=== PATIENT | female | born 1990 | race Caucasian/White ===

== ENCOUNTER 2017-10-11 02:03 | Emergency (ER) | payer OTHER ==
[~2017-10-11] VITALS: Ht 256.5 cm; Wt 49.9 kg
[2017-10-11 02:09] VITALS: BP 100/43
--- NOTE | 2017-10-11 02:09 | NUR ---
PT TAKEN TO BED 10
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
--- NOTE | 2017-10-11 02:24 | NUR ---
CALLED [facility] [employer], ETA 30-60MINS
[2017-10-11] MEDS ORDERED: NACL 0.9% 1,000 ML IV ONE (02:25)
[2017-10-11] MEDS ORDERED: ONDANSETRON 4 MG/2 ML VIAL IVP ONE (02:25)
--- NOTE | 2017-10-11 02:55 | NUR ---
PT ASLEEP, VSS.
[2017-10-11 03:01] LABS: HEMATOCRIT 36.9 % (36-48); HEMOGLOBIN 12.1 g/dL (12.0-16.0); MEAN CORPUSCULAR HEMOGLOBIN 30 pg (27-31); MEAN CORPUSCULAR HGB CONC 33 g/dL (33-37); MEAN CORPUSCULAR VOLUME 92 fL (80-94); PLATELET COUNT (AUTO) 167 K/uL (140-450); RED CELL DISTRIBUTION WIDTH 11.7 % (11.6-13.7); WHITE BLOOD COUNT (AUTO) 5.4 K/uL (4.8-10.8)
[2017-10-11 03:05] LABS: APPEARANCE,URINE CLEAR (CLEAR); BILIRUBIN,URINE NEGATIVE (NEGATIVE); BLOOD, URINE 1+ (NEGATIVE); COLOR,URINE YELLOW (YELLOW); LEUKOCYTE ESTERASE ,URINE NEGATIVE (NEGATIVE); NITRITE, URINE NEGATIVE (NEGATIVE); UGLUCOSE NEGATIVE (NEGATIVE)
[2017-10-11 03:11] LABS: ANION GAP 12.8 (8-16); CARBON DIOXIDE 25.9 mmol/L (21-32); CHLORIDE 109 mmol/L (98-107); CREATININE 0.5 mg/dL (0.6-1.3); GFR ARICAN-AMERICAN 193 mL/min (>90); GLUCOSE 119 mg/dL (74-106); POTASSIUM 3.7 mmol/L (3.5-5.1); SODIUM SERUM 144 mmol/L (136-145); UREA NITROGEN, BLOOD 10 mg/dL (7-18)
[2017-10-11 03:14] LABS: BARBITURATE, URINE NEG. ng/ml (NEG <=200); BENZODIAZEPINE, URINE NEG. ng/mL (NEG <=200); CANNABINOID, URINE NEG. ng/mL (NEG <=50); COCAINE, URINE NEG. ng/mL (NEG <=300); OPIATE, URINE NEG. ng/mL (NEG <=2000); PHENCYCLIDINE SCREEN,URINE NEG. ng/mL (NEG <=25)
[2017-10-11 03:17] LABS: ALBUMIN 4.1 g/dL (3.4-5.0); ASPARTATE AMINOTRANSFERASE 15 U/L (15-37); EOSINOPHILS % (MANUAL) 1 % (0-4); LYMPHOCYTES % (MANUAL) 22 % (20-46); MONOCYTES % (MANUAL) 6 % (5-12); TOTAL BILIRUBIN 0.3 mg/dL (0.0-1.0)
[2017-10-11 03:20] LABS: ACETAMINOPHEN < 0.5 ug/ml (10-30); SALICYLATE < 2.8 mg/dL (2.8-20.0)
--- NOTE | 2017-10-11 03:20 | NUR ---
PT TAKEN TO CT
[2017-10-11 03:22] LABS: RBC,URINE 0-5 (RARE) /HPF (0-5); WBC,URINE 0-5 (RARE) /HPF (0-5)
--- NOTE | 2017-10-11 03:44 | NUR ---
PT RETURN FROM CT
--- NOTE | 2017-10-11 03:45 | NUR ---
OFFICER ERIC FROM [place] [employer] CALLED ETA 30 MINS
--- NOTE | 2017-10-11 03:53 | NUR ---
[facility] AT BEDSIDE
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
[2017-10-11] MEDS ORDERED: LIDOCAINE/EPI 2% 1:100000 20 ML VIAL INJ ONE (05:30)
[2017-10-11] MEDS ORDERED: LIDOCAINE/EPI 1% 1:100000 20 ML VIAL INJ ONE (05:33)
[2017-10-11] MEDS ORDERED: BACITRACIN OINT 500 UNITS/GM PKT TP ONE ×2 (05:50→05:53)
[2017-10-11 05:55] VITALS: BP 127/86
--- NOTE | 2017-10-11 05:55 | NUR ---
Patient presented to facility under the influence of Alcohol. Patient is currently ambulatory with steady gait, able to walk unassisted. Positive gag reflex. Alert and oriented. Is not driving self for discharge out of facility.Patient discharged with v/s stable. Written and verbal after care instructions given and explained. Patient verbalized understanding. Ambulatory with steady gait. All questions addressed prior to discharge. Advised to follow up with PMD.
--- NOTE | 2017-11-06 19:59 | NUR ---
10/11/17 NS 1L END-TIME: [id number]
== END 2017-10-11 05:55 | disposition home or self-care (01) ==
LOC: MED 02:03 → EDBD 02:03 → MED 05:55
DX: S01.81XA Laceration without foreign body of other part of head, initial encounter (principal); W22.8XXA Striking against or struck by other objects, initial encounter; Y93.89 Activity, other specified; Y92.89 Other specified places as the place of occurrence of the external cause; Y99.8 Other external cause status
CPT/HCPCS: 12011; 36415; 70450; 80053; 80305; 81001; 81025; 85025; 96361; 96374; 99285; C1758; G0480; G0482; J2001; J2405; J7030

== ENCOUNTER 2017-10-22 10:36 | Emergency (ER) | payer OTHER ==
[~2017-10-22] VITALS: Ht 170.2 cm; Wt 51.7 kg
[2017-10-22 10:41] VITALS: BP 103/62
--- NOTE | 2017-10-22 10:44 | NUR ---
PT PLACED IN CHAIR C.
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
[2017-10-22 11:01] VITALS: BP 103/62
--- NOTE | 2017-10-22 11:02 | NUR ---
Patient discharged with v/s stable. Written and verbal after care instructions given and explained. Patient verbalized understanding. Ambulatory with steady gait. All questions addressed prior to discharge. Advised to follow up with PMD.
== END 2017-10-22 11:02 | disposition home or self-care (01) ==
LOC: MED 10:36
DX: S01.81XD Laceration without foreign body of other part of head, subsequent encounter (principal); X58.XXXD Exposure to other specified factors, subsequent encounter
CPT/HCPCS: 99281